=== PATIENT | male | born 1950 | race Caucasian/White ===

== ENCOUNTER 2017-06-02 10:30 | Inpatient (IN) | payer OTHER ==
[~2017-06-02] VITALS: Ht 174 cm; Wt 105.1 kg
[2017-06-02 11:46] VITALS: BP 165/73
[2017-06-02 11:58] LABS: APPEARANCE,URINE Clear (CLEAR); BILIRUBIN,URINE Negative (NEGATIVE); COLOR,URINE Yellow (YELLOW); GLUCOSE, URINE (UA) TRACE mg/dL (NEGATIVE); KETONES,URINE Negative (NEGATIVE); LEUKOCYTE ESTERASE ,URINE Negative (NEGATIVE); NITRATE,URINE Negative (NEGATIVE); OCCULT BLOOD,URINE Negative (NEGATIVE); PROTEIN,URINE Negative (NEGATIVE)
[2017-06-02 12:04] LABS: BACTERIA,URINE Rare /HPF (None Seen); RBC,URINE 0-1 /HPF (0-1); SQUAMOUS EPITHELIAL CELL,UR Rare /HPF (0-2); WBC,URINE 0-1 /HPF (0-1)
[2017-06-02] MEDS ORDERED: ATOR40TA71 PO (12:13)
[2017-06-02] MEDS ORDERED: LOSA100T29 PO (12:13)
[2017-06-02] MEDS ORDERED: HYDR25TA PO (12:13)
[2017-06-02] MEDS ORDERED: ASPI-1181 PO (12:13)
[2017-06-02] MEDS ORDERED: METF10004 PO (12:13)
[2017-06-02] MEDS ORDERED: GLIP10TA9 PO (12:13)
[2017-06-05 09:45] VITALS: BP 134/70
[2017-06-05] MEDS ORDERED: SODIUM CHLORIDE 0.9% 1000ML 1,000 ML IV ONE (09:50)
[2017-06-05] MEDS ORDERED: CEFAZOLIN SODIUM 1 GM VIAL ONE (09:50)
[2017-06-14] VITALS (17 sets, daily range): BP systolic 97–147; BP diastolic 58–80
[2017-06-14] MEDS ORDERED: SODIUM CHLORIDE 0.9% 1000ML 1,000 ML IV ONE (10:28)
[2017-06-14] MEDS ORDERED: CEFAZOLIN SODIUM 1 GM VIAL ONE ×2 (10:28→10:30)
[2017-06-14] MEDS ORDERED: TRANEXAMIC ACID 1000MG/10ML IV ONE (10:30)
[2017-06-14] MEDS ORDERED: BUPIVACAINE/EPI/PF 0.25% 30ML VIAL IJ ONE (10:30)
[2017-06-14 10:32] LABS: BASOPHILS % (AUTO) 1.2 % (0.0-5.0); EOSINOPHILS % (AUTO) 2.1 % (0.0-8.0); HEMATOCRIT 41.9 % (42-54); LYMPHOCYTES % (AUTO) 28.9 % (21.0-51.0); MEAN CORPUSCULAR HEMOGLOBIN 30.4 pg (27.0-33.0); MEAN CORPUSCULAR HGB CONC 34.9 g/dL (32.0-36.0); MEAN CORPUSCULAR VOLUME 87.2 fL (79-99); NEUTROPHILS % (AUTO) 57.8 % (40.0-77.0); PLATELET COUNT (AUTO) 196 K/uL (130-400); RED BLOOD CELL COUNT(AUTO) 4.81 MIL/uL (4.50-6.20); RED CELL DISTRIBUTION WIDTH 13.7 % (11.0-15.5); WHITE BLOOD COUNT (AUTO) 7.5 K/uL (4.8-10.8)
[2017-06-14 10:40] LABS: POTASSIUM 4.6 mmol/L (3.5-5.1)
[2017-06-14 10:53] LABS: INR 0.98 (0.85-1.15); PARTIAL THROMBOPLASTIN TIME 26.9 SEC (26.3-35.5); PROTHROMBIN TIME 10.3 SEC (9.6-11.6)
[2017-06-14] MEDS ORDERED: KETOROLAC TROMETHAMINE 15MG/ML ONE (11:26)
[2017-06-14] MEDS ORDERED: ACETAMINOPHEN EXTRA STRENGTH 500 MG TABLET ONE (11:26)
[2017-06-14] MEDS ORDERED: CELECOXIB 200 MG CAP ONE (11:27)
[2017-06-14] MEDS ORDERED: OXYCODONE HCL 10 MG TAB.SR.12H PO ONE (11:27)
[2017-06-14] MEDS ORDERED: LIDOCAINE PF 2% 5ML ABBOJECT ONE (12:51)
[2017-06-14] MEDS ORDERED: GLYCOPYRROLATE 0.2 MG/ML 5 ML VIAL ONE (12:51)
[2017-06-14] MEDS ORDERED: DEXAMETHASONE SOD PHOSPHATE 10MG/ML 1ML VIAL ONE (12:51)
[2017-06-14] MEDS ORDERED: PROPOFOL 10 MG/ML 20ML VIAL IV ONE (12:52)
[2017-06-14] MEDS ORDERED: MIDAZOLAM HCL 1 MG/ML 2ML VIAL ONE (12:52)
[2017-06-14] MEDS ORDERED: FENTANYL CITRATE PF 50 MCG/1 ML 2ML VIAL ONE (12:53)
[2017-06-14] MEDS ORDERED: ROPIVACAINE 0.5% 5MG/ML 30ML IJ ONE (12:59)
[2017-06-14] MEDS ORDERED: CALCIUM CARBONATE 500 MG TABLET PO PRN (15:00)
[2017-06-14] MEDS ORDERED: LIDOCAINE HCL-MPF 1% 2ML VIAL IVP PRN (15:00)
[2017-06-14] MEDS ORDERED: POTASSIUM CHLORIDE 20MEQ/100ML 100 ML IV PRN (15:00)
[2017-06-14] MEDS ORDERED: PROMETHAZINE HCL 25 MG/ML 1ML AMPULE IM PRN (15:00)
[2017-06-14] MEDS ORDERED: TEMAZEPAM 15 MG CAPSULE PO PRN (15:00)
[2017-06-14] MEDS: ACETAMINOPHEN 325 MG TAB PO SCH ×2 (15:00→20:06)
[2017-06-14] MEDS ORDERED: DIPHENHYDRAMINE HCL 25 MG CAPSULE PO PRN (15:00)
[2017-06-14] MEDS ORDERED: POTASSIUM CHLORIDE 10% ELIXIR 20 MEQ/15 ML UDCUP PO PRN (15:00)
[2017-06-14] MEDS ORDERED: OXYCODONE HCL 5 MG TAB PO PRN (15:00)
[2017-06-14] MEDS ORDERED: FERROUS FUMARATE 324 MG TABLET PO PRN (15:00)
[2017-06-14] MEDS ORDERED: DiphenhydrAMINE HCL 50 MG/ML VIAL IVP PRN (15:00)
[2017-06-14] MEDS ORDERED: POTASSIUM CHLORIDE 20 MEQ ERTAB PO PRN (15:00)
[2017-06-14] MEDS ORDERED: MEPERIDINE-PF 25 MG/ML SYG ONE ×2 (15:51→16:05)
[2017-06-14] MEDS: INSULIN HUMULIN R 100 UNIT/ML 3ML SQ SCH ×2 (16:30→21:10)
[2017-06-14] MEDS: SODIUM CHLORIDE 0.9% 1000ML 1,000 ML IV SCH (18:28)
[2017-06-14] MEDS: OXYCODONE HCL 5 MG TAB PO PRN (18:29)
[2017-06-14] MEDS ORDERED: ARTIFICAL TEARS SOL 15 ML OS PRN (18:30)
[2017-06-14] MEDS: ASPIRIN 325 MG TABLET PO SCH (20:05)
[2017-06-14] MEDS: FAMOTIDINE 20MG TAB 20 MG TAB PO SCH (20:05)
[2017-06-14] MEDS: CELECOXIB 200 MG CAP PO SCH (20:05)
[2017-06-14] MEDS: PREGABALIN 75 MG CAPSULE PO SCH (20:05)
[2017-06-14] MEDS: CEFAZOLIN 3GM /D5W 100ML 100 ML IV SCH (20:11)
[2017-06-14] MEDS: METFORMIN HCL 500 MG TABLET PO SCH (21:08)
[2017-06-14] MEDS: GLIPIZIDE 5 MG TABLET PO SCH (21:09)
[2017-06-15] VITALS (7 sets, daily range): BP systolic 116–159; BP diastolic 53–83
[2017-06-15] MEDS: SODIUM CHLORIDE 0.9% 1000ML 1,000 ML IV SCH ×2 (01:45→10:54)
[2017-06-15] MEDS: CEFAZOLIN 3GM /D5W 100ML 100 ML IV SCH (04:25)
[2017-06-15] MEDS: ACETAMINOPHEN 325 MG TAB PO SCH ×4 (04:25→19:12)
[2017-06-15] MEDS: KETOROLAC TROMETHAMINE 15MG/ML IV PRN ×3 (04:30→19:16)
[2017-06-15 05:43] LABS: CREATININE 1.1 mg/dL (0.5-1.5); POTASSIUM 4.3 mmol/L (3.5-5.1)
[2017-06-15 05:44] LABS: HEMATOCRIT 34.9 % (42-54); MEAN CORPUSCULAR HGB CONC 34.3 g/dL (32.0-36.0); MEAN CORPUSCULAR VOLUME 87.4 fL (79-99); PLATELET COUNT (AUTO) 175 K/uL (130-400); RED BLOOD CELL COUNT(AUTO) 3.99 MIL/uL (4.50-6.20); RED CELL DISTRIBUTION WIDTH 13.8 % (11.0-15.5); WHITE BLOOD COUNT (AUTO) 10.1 K/uL (4.8-10.8)
[2017-06-15] MEDS: INSULIN HUMULIN R 100 UNIT/ML 3ML SQ SCH ×4 (06:26→20:31)
[2017-06-15] MEDS: METFORMIN HCL 500 MG TABLET PO SCH ×2 (08:36→17:24)
[2017-06-15] MEDS: PREGABALIN 75 MG CAPSULE PO SCH ×2 (08:36→19:12)
[2017-06-15] MEDS: HYDROCHLOROTHIAZIDE 25 MG TABLET PO SCH (08:36)
[2017-06-15] MEDS: ATORVASTATIN CALCIUM 40 MG TABLET PO SCH (08:36)
[2017-06-15] MEDS: ASPIRIN 325 MG TABLET PO SCH ×2 (08:36→19:12)
[2017-06-15] MEDS: FAMOTIDINE 20MG TAB 20 MG TAB PO SCH ×2 (08:36→19:12)
[2017-06-15] MEDS: POLYETHYLENE GLYCOL 3350 17 GM POWD.PACK PO SCH (08:36)
[2017-06-15] MEDS: CELECOXIB 200 MG CAP PO SCH ×2 (08:36→19:12)
[2017-06-15] MEDS: TAMSULOSIN HCL 0.4 MG CAP.ER.24H PO SCH (08:37)
[2017-06-15] MEDS: GLIPIZIDE 5 MG TABLET PO SCH ×2 (08:37→19:13)
[2017-06-15] MEDS: LOSARTAN 100 MG TABLET PO SCH (08:37)
[2017-06-15] MEDS: OXYCODONE HCL 5 MG TAB PO PRN (08:40)
[2017-06-15] MEDS: PSYLLIUM SEED 1 EACH PACKET PO SCH (11:52)
[2017-06-16 04:00] VITALS: BP 140/77
[2017-06-16] MEDS: ACETAMINOPHEN 325 MG TAB PO SCH ×2 (04:06→13:07)
[2017-06-16] MEDS: KETOROLAC TROMETHAMINE 15MG/ML IV PRN (05:37)
[2017-06-16] MEDS: INSULIN HUMULIN R 100 UNIT/ML 3ML SQ SCH ×3 (05:45→17:13)
[2017-06-16 06:24] LABS: MEAN CORPUSCULAR HEMOGLOBIN 30.2 pg (27.0-33.0); MEAN CORPUSCULAR HGB CONC 34.4 g/dL (32.0-36.0); MEAN CORPUSCULAR VOLUME 87.7 fL (79-99); PLATELET COUNT (AUTO) 171 K/uL (130-400); RED BLOOD CELL COUNT(AUTO) 3.87 MIL/uL (4.50-6.20); RED CELL DISTRIBUTION WIDTH 13.8 % (11.0-15.5); WHITE BLOOD COUNT (AUTO) 9.9 K/uL (4.8-10.8)
[2017-06-16 06:36] LABS: POTASSIUM 3.7 mmol/L (3.5-5.1)
[2017-06-16 07:55] VITALS: BP 137/65
[2017-06-16] MEDS: TAMSULOSIN HCL 0.4 MG CAP.ER.24H PO SCH (08:45)
[2017-06-16] MEDS: CELECOXIB 200 MG CAP PO SCH ×2 (08:45→21:27)
[2017-06-16] MEDS: METFORMIN HCL 500 MG TABLET PO SCH ×2 (08:45→17:03)
[2017-06-16] MEDS: ASPIRIN 325 MG TABLET PO SCH ×2 (08:45→21:27)
[2017-06-16] MEDS: LOSARTAN 100 MG TABLET PO SCH (08:45)
[2017-06-16] MEDS: GLIPIZIDE 5 MG TABLET PO SCH ×2 (08:46→21:27)
[2017-06-16] MEDS: HYDROCHLOROTHIAZIDE 25 MG TABLET PO SCH (08:46)
[2017-06-16] MEDS: ATORVASTATIN CALCIUM 40 MG TABLET PO SCH (08:46)
[2017-06-16] MEDS: FAMOTIDINE 20MG TAB 20 MG TAB PO SCH ×2 (08:46→21:28)
[2017-06-16] MEDS: PREGABALIN 75 MG CAPSULE PO SCH ×2 (08:46→21:27)
[2017-06-16] MEDS: POLYETHYLENE GLYCOL 3350 17 GM POWD.PACK PO SCH (08:46)
[2017-06-16] MEDS: OXYCODONE HCL 5 MG TAB PO PRN ×3 (08:47→18:50)
[2017-06-16] MEDS ORDERED: MAGNESIUM HYDROXIDE 30 ML/UDCUP PO PRN (11:30)
[2017-06-16 11:36] VITALS: BP 150/73
[2017-06-16] MEDS: PSYLLIUM SEED 1 EACH PACKET PO SCH (13:06)
[2017-06-16] MEDS ORDERED: BISACODYL 5 MG TABLET.DR PO PRN (15:00)
[2017-06-16 16:00] VITALS: BP 123/63
[2017-06-16] MEDS ORDERED: ASPI-1012 PO (16:34)
[2017-06-16] MEDS ORDERED: HYDR-309 PO (16:34)
[2017-06-16] MEDS ORDERED: BISACODYL 10 MG SUPP.RECT RC ONE (19:39)
[2017-06-16 20:00] VITALS: BP 117/67
[2017-06-17] MEDS ORDERED: BISACODYL 10 MG SUPP.RECT RC PRN (15:00)
== END 2017-06-16 21:30 | disposition home health service (06) | DRG 470 ==
LOC: UNDOADMIN 06-05 09:26 → DAHIP 06-05 09:26 → UNDODISIN 06-05 10:50 → EDSTATUS 06-05 15:00 → DAHIP 06-14 09:56 → 4AH 06-14 16:41
PROVIDERS: ADMIT Family Medicine; ATTEND Orthopaedic Surgery
PROC: 0SRD0J9 Replacement of Left Knee Joint with Synthetic Substitute, Cemented, Open Approach (ICD-10-PCS; principal; 2017-06-14 12:46)
DX: M17.12 Unilateral primary osteoarthritis, left knee (principal); E11.319 Type 2 diabetes mellitus with unspecified diabetic retinopathy without macular edema; G89.29 Other chronic pain; I10 Essential (primary) hypertension; E66.01 Morbid (severe) obesity due to excess calories; Z68.34 Body mass index [BMI] 34.0-34.9, adult; Z89.421 Acquired absence of other right toe(s); Z82.49 Family history of ischemic heart disease and other diseases of the circulatory system
CPT/HCPCS: 36415; 80048; 81001; 82948; 85025; 85027; 85610; 85730; 88304; 88311; A4218; C1713; J0690; J1100; J1815; J1885; J2001; J2175; J2250; J2704; J2795; J3010; J3490; J7030